=== PATIENT | female | born 1940 | race Caucasian/White ===

== ENCOUNTER 2020-08-25 13:04 | Emergency (ER) | payer MEDICARE, OTHER ==
[2020-08-25] MEDS ORDERED: HYDROcodone/Acetaminophen 5/325 mg Tablet ONE (13:39)
--- NOTE | 2020-08-25 14:10 | CT ---
EXAM: CT scan cervical spineWithout contrast: HISTORY: Right-sided neck pain COMPARISON: None FINDINGS: No evidence for acute fracture or facet dislocation. Mild retrolisthesis of C4 on C5 and C5 on C6 and mild anterolisthesis of C6 on C7 Generalized disc osteophytosis and facet arthrosis. No prevertebral soft tissue swelling. IMPRESSION: No evidence for acute fracture or facet dislocation or other significant acute process.
== END 2020-08-25 15:15 | disposition home or self-care (01) ==
LOC: ERS 13:04
DX: M25.512 Pain in left shoulder (principal); I12.9 Hypertensive chronic kidney disease with stage 1 through stage 4 chronic kidney disease, or unspecified chronic kidney disease; E11.22 Type 2 diabetes mellitus with diabetic chronic kidney disease; N18.9 Chronic kidney disease, unspecified; E78.00 Pure hypercholesterolemia, unspecified; E78.5 Hyperlipidemia, unspecified; X50.0XXA Overexertion from strenuous movement or load, initial encounter; Y93.53 Activity, golf
CPT/HCPCS: 72125; 93005